=== PATIENT | male | born 1960 | race Caucasian/White ===

== ENCOUNTER → 2024-10-07 | Outpatient (CLI) | payer OTHER ==
[~2024-10-07] MED LIST: ALLO100T PO; LOSA100T46 PO; METF500T13 PO
== END ==
LOC: M SOG 07:43
PROVIDERS: ATTEND Physician Assistant
DX: M79.642 Pain in left hand (principal); M79.641 Pain in right hand

== ENCOUNTER 2024-11-29 09:23 | Day surgery (SDC) | payer OTHER ==
[~2024-11-29] VITALS: Ht 172.7 cm; Wt 95.3 kg
[2024-11-29] MEDS ORDERED: SODIUM BICARBONATE 8.4% INJ 50MEQ 50ML VIAL XX ONE (10:30)
[2024-11-29] MEDS ORDERED: LIDOCAINE W/EPINEPHRINE 1% 20ML VIAL SC ONE (10:30)
[2024-11-29] MEDS ORDERED: BACITRACIN OINTMENT 30GM TUBE As Ordered ONE (11:38)
[2024-11-29 11:55] VITALS: BP 178/98; TEMP 97.5; O2SAT 97
== END 2024-11-29 12:02 | disposition home or self-care (01) ==
LOC: M SDC 09:23
PROVIDERS: ATTEND Orthopaedic Surgery Hand Surgery
DX: M65.4 Radial styloid tenosynovitis [de Quervain] (principal); I10 Essential (primary) hypertension; E11.9 Type 2 diabetes mellitus without complications; M10.9 Gout, unspecified; Z92.21 Personal history of antineoplastic chemotherapy; Z79.84 Long term (current) use of oral hypoglycemic drugs; Z79.899 Other long term (current) drug therapy